=== PATIENT | male | born 1985 | race Caucasian/White ===

== ENCOUNTER 2020-11-27 17:17 | Emergency (ER) | payer BC, SELFPAY ==
[2020-11-27 17:36] VITALS: BP 135/92; PULSE 81; RESP 16; TEMP 36.9; O2SAT 100; BMI 34.7
[2020-11-27 18:04] VITALS: BP 135/92; PULSE 81; RESP 16; TEMP 36.9; O2SAT 100; BMI 34.7
--- NOTE | 2020-11-27 18:38 | HMH.EDUTC ---
[facility] [place] Clinical Impression: Dog bite of left forearm Qualifiers: Encounter type: initial encounter Qualified Code(s): S51.852A - Open bite of left forearm, initial encounter Disposition: Home, Self-Care Condition on Discharge: Good Instructions: How to Care for a Laceration After Repair, DI for Dog Bite Additional Instructions: Keep the wound clean and dry. Keep a dressing on it if you are going to be getting it dirty. Watch the for signs of infection, such as redness, swelling, drainage, fever. etc. Take tylenol or ibuprofen for pain. Follow up with your regular doctor. Return in 7 to 10 days to have the sutures removed. Make sure you stay in contact with the health department regarding the health of the dog. GO TO THE ER FOR ANY WORSENING SYMPTOMS OR CONCERNS. Prescriptions: Amoxicillin/Potassium Clav [Augmentin 875-125 Tablet] 1 tab PO Q12H 10 Days #20 tab Prescription Printed Referrals: Provider,Referral, MD [Primary Care Provider] - Forms: Work/School Release Time of Disposition: 19:15 Medical Decision Making - Medical Records Medical records reviewed: No: I reviewed the patient's medical records. - Iraj Inquiry Pt receiving controlled substance: No Vital Signs: 11/27/20 17:36 11/27/20 18:04 11/27/20 19:22 Temperature 98.4 F 98.4 F 98.4 F Temperature Source Oral Oral Pulse Rate 86 Pulse Rate [Left] 81 81 Respiratory Rate 16 16 16 Blood Pressure 132/87 Blood Pressure [Right Arm] 135/92 H 135/92 H Blood Pressure Mean [Right Arm] 106 106 Blood Pressure Source [Right Arm] Automatic Cuff Blood Pressure Position [Right Arm] Sitting 02 Sat by Pulse Oximetry 100 100 Oxygen Delivery Method Room Air Orders (Tests/Meds): ED MEDICATIONS Discontinued Medications Generic Name Dose Route Start Last Admin Trade Name Freq PRN Reason Stop Dose Admin Ceftriaxone Sodium 1 gm 11/27/20 18:44 11/27/20 18:45 Ceftriaxone 1gm Vial IM 11/27/20 18:45 1 gm ONCE ONE Administration Protocol Lidocaine HCl 5 ml 11/27/20 18:44 11/27/20 18:46 Lidocaine 1% 5ml Pf Vial IJ 11/27/20 18:45 5 ml ONCE ONE Administration Lidocaine HCl 0 ml 11/27/20 18:44 11/27/20 18:46 Lidocaine 1% 5ml Pf Vial IM 11/27/20 18:45 2.5 ml ONCE ONE Administration Medical Decision Narrative: The 2 puncture wounds were sutured because of their depth. [facility] [place] - General Stated complaint: AO dog bite 1700 Time Seen by Provider: 11/27/20 18:41 Mode of Arrival: Ambulatory Source of Information: Patient Limitations: No Limitations Description of Symptoms (Recalled from Triage Doc. by RN): pt was bitten by a friends great aaron on his L elbow. there are two puncture canales one on each side of the elbow. HEENT Symptoms (Recalled from RN notes): No Resp Symptoms (Recalled from RN notes): No Skin Symptoms (Recalled from RN notes): Yes MS Symptoms (Recalled from RN notes): No Functional Status (Recalled from RN notes): na - History of Present Illness Provider Complaint: He states that just before coming in today, he was bit by a stray dog while he was celebrating the November at his sister's house. He states that the dog was a large dog. It bit him on his left fore arm. He denies any other injury. His tetanus immunization is up to date. - Related Data Previous Rx's Medication Instructions Recorded Amoxicillin/Potassium Clav 1 tab PO Q12H 10 Days #20 tab 11/27/20 [Augmentin 875-125 Tablet] Allergies Allergy/AdvReac Type Severity Reaction Status Date / Time No Known Allergies Allergy Verified 11/27/20 18:43 - Worker's Comp Is this a Worker's Comp case?: No [facility] History - Hepatitis A Screen Drug use history?: No High risk sexual behaviors?: No History of sexually transmitted infection?: No Currently employed?: No Childcare worker?: No Do you have indoor plumbing?: Yes Do you have electricity?: Yes Attestation statement::
--- NOTE | 2020-11-27 19:11 | PC.NURSE ---
offered to do an xray of animal bite puncture. informed a tooth could have broken off inside the wound. pt denied images.
[2020-11-27 19:22] VITALS: BP 132/87; PULSE 86; RESP 16; TEMP 36.9
== END 2020-11-27 19:26 | disposition home or self-care (01) ==
LOC: ER 17:36 → UTC 17:37
PROVIDERS: Emergency Provider Nurse Practitioner Family
DX: S51.852A Open bite of left forearm, initial encounter (principal); W54.0XXA Bitten by dog, initial encounter
CPT/HCPCS: 12001; 96372; 99202; G0463